=== PATIENT | female | born 1960 | race Caucasian/White ===

== ENCOUNTER 2023-06-04 09:08 | Emergency (ER) | payer MEDICARE, SELFPAY ==
[2023-06-04 09:18] VITALS: BP 143/72; PULSE 103; RESP 20; TEMP 37.6; O2SAT 96
--- NOTE | 2023-06-04 09:32 | ED.GENADULT ---
HPI - General Adult General Chief complaint: Upper Respiratory Infection Stated complaint: Right Hip Pain Source: patient Mode of arrival: ambulatory Limitations: no limitations History of Present Illness HPI narrative: 62-year-old female presenting for complaint of right hip pain x3 days. Denies headache, fever/chills or worsening cough. Endorses chronic cough, r/t smoking 1ppd x20 years. Denies fall or injury. Pain is constant and sharp to posterior hip, not aggravated by walking or sitting. Denies pain radiating into the legs, numbness, tingling, weakness of the lower extremities, change in gait, saddle paresthesia or loss of bowel or bladder. Denies rash or lesions to the hip Has not taken anything for pain. . Related Data Home Medications Medication Instructions Recorded Confirmed albuterol sulfate 90 mcg/actuation 2 puff inhalation Q4-6H PRN 06/04/23 06/04/23 aerosol inhaler Shortness Of Breath Or Wheezing baclofen 20 mg tablet 20 mg PO BID 06/04/23 06/04/23 clonazepam 0.5 mg tablet 0.5 mg PO DAILY 06/04/23 06/04/23 escitalopram oxalate 20 mg tablet 20 mg PO DAILY 06/04/23 06/04/23 metoprolol tartrate 50 mg tablet 50 mg PO DAILY 06/04/23 06/04/23 omeprazole 40 mg capsule,delayed 40 mg PO DAILY 06/04/23 06/04/23 release Allergies Allergy/AdvReac Type Severity Reaction Status Date / Time Penicillins Allergy Intermediate Hives Verified 06/04/23 09:40 Review of Systems Review of Systems: CONSTITUTIONAL: Denies body aches, fever, chills, or sweats. EYES: Denies visual changes, redness, or discharge. ENT: Denies rhinorrhea, congestion, sore throat, or otalgia. CARDIOVASCULAR: Denies chest pain, palpitations, or edema. RESPIRATORY: Denies increase in cough or dyspnea. GASTROINTESTINAL: Denies abdominal pain, nausea, vomiting, or diarrhea. SKIN: Denies rash, bruising or wounds. MUSCULOSKELETAL: Denies back pain, joint pain, or myalgia. NEUROLOGIC: Denies headache, numbness, tingling, or weakness. All systems reviewed & are unremarkable except as noted in HPI and below PMFSH Past Medical History Medical History (Updated 06/04/23 @ 09:49 by Emy Finnegan APRN) COPD (chronic obstructive pulmonary disease) Social History Social History (Updated 06/04/23 @ 09:45 by Emy Finnegan APRN) Smoking packs per day: 1 Smoking cigarettes per day: 20.0 Years smoked: 20 Smoking pack-years: 20.00 Smoking status: Current every day smoker Tobacco type: cigarettes Comments At time of signature, I have reviewed and agree with nursing past medical, surgical, social and family history unless otherwise noted. Please see nursing chart for further information. There is no relevant family history pertinent to the presenting complaint Exam Narrative: GENERAL: chronically ill-appearing, nontoxic and in no acute distress. EYES: EOMI. No redness or drainage. Conjunctivae normal. ENT: Mucous membranes pink and moist. CHEST: No respiratory distress. Scattered wheezing throughout. HEART: Regular rate and rhythm. No murmur appreciated. Normal peripheral pulses. EXTREMITIES: Normal range of motion. No edema. Right posterior hip tenderness, no bruising or rash. Tolerates seated position and transitions to standing without difficultly. Gait steady. SKIN: Warm, dry, no rash. Capillary refill normal. Normal skin turgor. NEURO: No focal deficits. Alert and oriented x3. Gait steady. PSYCH: Normal affect. Back/Spine/Pelvis: Back/spine/pelvis image: 1. area of right hip pain reported Course Course Emergency Course: Patient is aware of diagnosis, understands and agrees to treatment plan. Anticipatory guidance given. Patient agrees to follow-up as directed and is aware of reasons to seek care at the emergency department. Portions of this record may have been created with voice recognition software Level of Care: Express Care Visit Vital Signs Vital signs: Vital Signs Temperature 99.7 F
== END 2023-06-04 09:52 | disposition home or self-care (01) ==
PROVIDERS: Emergency Provider Nurse Practitioner Family; PCP Internal Medicine
DX: M25.551 Pain in right hip (principal); Z20.822 Contact with and (suspected) exposure to COVID-19; F17.210 Nicotine dependence, cigarettes, uncomplicated; J44.9 Chronic obstructive pulmonary disease, unspecified
CPT/HCPCS: 87426; 87804; 99213; G0463

== ENCOUNTER 2023-09-14 11:23 | Emergency (ER) | payer MEDICARE, SELFPAY ==
[2023-09-14 11:28] VITALS: BP 150/94; PULSE 89; RESP 18; TEMP 36.8; O2SAT 98
--- NOTE | 2023-09-14 11:42 | ED.GENADULT ---
HPI - General Adult General Chief complaint: Unspecified Stated complaint: headaches/achey/hard to breathe Time Seen by Provider: 09/14/23 11:44 Source: patient, RN notes reviewed and old records reviewed Mode of arrival: ambulatory Limitations: no limitations History of Present Illness HPI narrative: 62 year old female who presents to [facility] care with complaints of not feeling well for the past 5 days Patient reports that she has COPD and that she continues to smoke cigarettes daily, admits to some PAREDES, some dizziness and feels like her heart is racing off and on. Patient denies any pain anywhere, no nausea or vomiting or diarrhea. Patient reports that she has been having a hard time since her father's the 18 of August. Patient reports that she has history of anxiety and has been feeling especially anxious lately. She states that she sees mental health provider for her anxiety and takes daily one clonazepam and citalopram. Patient reports that she doesn't have inhaler at home MD complaint: dizzy some shortness of breath with exertion,racing heart and acute anxiety Onset (ago): day(s) (5) Severity: mild Treatments prior to arrival: none Related Data Home Medications Medication Instructions Recorded Confirmed albuterol sulfate 90 mcg/actuation 2 puff inhalation Q4-6H PRN 06/04/23 06/04/23 aerosol inhaler Shortness Of Breath Or Wheezing baclofen 20 mg tablet 20 mg PO BID 06/04/23 06/04/23 clonazepam 0.5 mg tablet 0.5 mg PO DAILY 06/04/23 06/04/23 escitalopram oxalate 20 mg tablet 20 mg PO DAILY 06/04/23 06/04/23 metoprolol tartrate 50 mg tablet 50 mg PO DAILY 06/04/23 06/04/23 omeprazole 40 mg capsule,delayed 40 mg PO DAILY 06/04/23 06/04/23 release Allergies Allergy/AdvReac Type Severity Reaction Status Date / Time Penicillins Allergy Intermediate Hives Verified 06/04/23 09:40 Review of Systems Review of Systems: CONSTITUTIONAL: Denies fever, chills, or sweats. EYES: Denies visual changes, redness, or discharge. ENT: Denies rhinorrhea, congestion, sore throat, or otalgia. CARDIOVASCULAR: Denies chest pain, occasional palpitations, no edema. RESPIRATORY: Denies acute cough reports some dyspnea with exertion. GASTROINTESTINAL: Denies abdominal pain, nausea, vomiting, or diarrhea. GENITOURINARY: Denies dysuria or hematuria. SKIN: Denies rash or itching. MUSCULOSKELETAL: Denies back pain, joint pain, or myalgia. NEUROLOGIC: Denies headache, numbness, or weakness. PSYCHIATRIC:Reports anxiety or depression. All systems reviewed & are unremarkable except as noted in HPI and below PMFSH Past Medical History Medical History (Updated 09/16/23 @ 12:20 by Shasta Chris NP) Anxiety Bronchitis COPD (chronic obstructive pulmonary disease) GERD (gastroesophageal reflux disease) Grief Hypertension Surgical History Surgical History (Updated 09/16/23 @ 12:19 by Shasta Chris NP) Hx of cholecystectomy Social History Social History (Updated 06/04/23 @ 09:45 by Emy Finnegan, MICHELLE) Smoking packs per day: 1 Smoking cigarettes per day: 20.0 Years smoked: 20 Smoking pack-years: 20.00 Smoking status: Current every day smoker Tobacco type: cigarettes Comments At time of signature, agree with nursing past medical, surgical, social and family history. There is no relevant family history pertinent to the presenting complaint Exam Narrative: GENERAL: Well-appearing, well-nourished,pale, and in no acute distress. HEAD: Normocephalic, atraumatic. EYES: PERRLA and EOMI. ENT: Nares clear, no rhinorrhea or epistaxis. Mucous membranes moist. TM's normal throat with some redness no tonsil swelling NECK: Supple. no lymphadenopathy CHEST: Decreased with rare wheeze noted on auscultation. No respiratory distress.SAO2 98% on room air, no tachypnea or retractions HEART: Regular rate and rhythm. No murmur heard. Normal peripheral pulses, no peripheral edema. ABDOMEN: Soft, nontender, nondistended, normal act
== END 2023-09-14 12:26 | disposition home or self-care (01) ==
PROVIDERS: Emergency Provider Registered Nurse; PCP Internal Medicine
DX: F41.9 Anxiety disorder, unspecified (principal); R06.09 Other forms of dyspnea; Z20.822 Contact with and (suspected) exposure to COVID-19; F17.210 Nicotine dependence, cigarettes, uncomplicated; J44.9 Chronic obstructive pulmonary disease, unspecified; K21.9 Gastro-esophageal reflux disease without esophagitis; I10 Essential (primary) hypertension
CPT/HCPCS: 87081; 87426; 87804; 87880; 99213; G0463